=== PATIENT | female | born 1945 | race Caucasian/White ===

== ENCOUNTER 2016-09-06 22:51 | Emergency (ER) | payer OTHER ==
[~2016-09-06 22:51] MED LIST: ASPIRIN EC81 MG PO; AUGMENTIN875 MG PO; CIPRO500 MG PO; CLOPIDOGREL75 MG PO; HYDROCHLOROTHIA25 MG PO; MORPHINE SULFAT15 M1 PO; MULTIPLE VITAMIN PO; OXYCODONE HCL15 MG PO; OXYCONTIN CR15 MG PO; PROBIOTI1 PO
--- NOTE | 2016-09-06 23:30 | ED NURSING NOTES ---
Clinical Report - Nurses [facility] [address] [place] [address] 09/06/2016 22:52 Patient: MIKE BOONE TRIAGE Triage time 23:01 Sep 06 2016. Acuity: LEVEL 3. Chief Complaint: (Hemoptysis). SEPSIS SCREEN: Sepsis Screen. Negative (no infection suspected/documented). INDIGO COMA SCORE: Indigo Coma Scale: 15- eyes open spontaneously (4); best verbal response- oriented x 4 (5); best motor response- obeys commands (6). --23:12 Rachel Kaminski R.N. 23:01 09/06/16. BP: 140/63. HR: 90. RR: 16. O2 saturation: 100%. Temp: 98.2 F. Pain level now 0/10. --23:12 Rachel Kaminski R.N. Weight: 57.6 kg stated. Height/Length: 64 inches Per Patient. BMI: 21.8. --23:01 Rachel Kaminski R.N. Medications Aspirin Oral (Tablet 81 mg) 1 tablet, daily. Plavix Oral. --23:03 Rachel Kaminski R.N. Loratadine Oral. Plavix Oral (Tablet 75 mg) 1 tablet, daily. --23:03 Rachel Kaminski R.N. Loratadine Oral (Tablet 10 mg) 1 tablet, daily. Multivitamins Oral. --23:03 Rachel Kaminski R.N. OxyCODONE HCl Oral (Tablet 15 mg) 1 tablet, every 4 hours. --23:03 Rachel Kaminski R.N. Probiotic Oral, daily. --23:04 Rachel Kaminski R.N. Hydrochlorothiazide Oral (Tablet 25 mg) 1 tablet, daily. --23:04 Rachel Kaminski R.N. Medication/allergy information source: the patient. --23:12 Rachel Kaminski R.N. Allergies Cephalexin. Influenza Vaccines. Minocycline. Sulfamethoxazole/Trimethoprim. Tylenol. (intolerance) --23:38 Rachel Kaminski R.N. History Arrived by private vehicle. Historian: patient. Accompanied by friend. This started today. ( Denies cold symptoms, no bleeding from nose. No hx of TB or TB exposure recent or in the past. Observed small (< quarter size) blood clot that was expectorated during triage. Denies Shortness of breath or chest pain). She has had a cough. No fever, weakness, difficulty breathing or skin rash. Denies muscle aches. Treatment SNOW TECHNICIAN: None. PAST MEDICAL HX: Immunizations: up-to-date. SOCIAL HX: Former smoker. History of drug use: marijuana. (daily). No infectious disease exposure. ABUSE ASSESSMENT: No report of abuse. SELF HARM ASSESSMENT: A self harm assessment was performed. The patient answered "no" to the question "Have you recently felt down, depressed, or hopeless?", "Have you noticed less interest or pleasure in doing things?", "Do you have thoughts of harming or killing yourself?", "Are you here because you tried to hurt yourself?", "Have you ever tried to hurt yourself before today?", "Have you recently had thoughts about harming or killing others?" and "Do you have any dangerous items in your possession?". FALL RISK ASSESSMENT: Fall risk assessment completed. No fall risk identified. NUTRITIONAL RISK ASSESSMENT: The nutritional risk assessment revealed no deficiencies. FUNCTIONAL ASSESSMENT: Functional assessment: no impairments noted. LEARNING NEEDS ASSESSMENT: The learning needs assessment revealed no barriers. SKIN INTEGRITY ASSESSMENT: Skin integrity risk assessment completed. No skin integrity risk identified. --23:12 Rachel Kaminski R.N. PROBLEMS: Wound debridement. Guillain-[place]. Wound Infection. PVD. Hyperlipidemia. Bypass Graft Stenosis. Cellulitis. Angioedema. Hernia. LNMP - Last Normal Menstrual Period. Corneal Abrasion. Left leg swelling. Breast Cancer. Hypertension. --23:05 Rachel Kaminski R.N. ADDITIONAL SURGERIES: Appendectomy. Carpal Tunnel Surgery. Lymphectomy. Shoulder Surgery. Vascular surgery left leg . Vascular surgery on right leg recently. --23:05 Rachel Kaminski R.N. Interventions ID band on patient. --23:12 Rachel Kaminski R.N. PHYSICAL ASSESSMENT Ambulatory to room. GENERAL / NEURO / PSYCH: Alert. Oriented X 4. HEENT: Pupils equal, round and reactive to light. No facial asymmetry noted. RESPIRATORY: Respirations not labored. Chest nontender. Breath sounds within normal limits. CVS: Pulses within normal limits. GI / : Abdomen nontender. SKIN: Skin is dry. ( cool skin, dusky nail beds). --23:15 Rachel Kaminski R.N. NURSING PROGRESS NOTES 23:14 09/06/16. The initial plan of care for this patient has been created This plan of care was discussed with the patient. Patient gowned. Patient identifiers checked. Call light placed in reach. Side rails up x 1. Bed placed in lowest position. Brakes of bed on. Patient ready for evaluation. --23:14 Rachel Kaminski R.N. 23:30 09/06/2016 Afrin (Oxymetazoline HCl) Nasal [place] 2 spray given. Given in both nares. Allergies verified and confirmed 5 rights. --23:34 Rachel Kaminski R.N. DISPOSITION / DISCHARGE 23:37 09/06/16. Departure time: 23:37 Sep 06 2016. Condition at departure: improved and stable. The goals identified in the patient's plan of care were met. No learning barriers present. Discharge instructions provided and reviewed with the patient. Patient verbalized understanding. Written instructions provided in Romanian. The patient was discharged home and accompanied by chair car driver. She left the Emergency Department ambulatory and via private vehicle. Director Of Strategic Partnerships driving. --23:37 Rachel Kaminski R.N. 23:01 09/06/16. BP: 140/63. HR: 90. RR: 16. O2 saturation: 100%. Temp: 98.2 F. Pain level now 0/10. --23:37 Rachel Kaminski R.N. Locked/Released at 09/06/2016 23:38 by Rachel Kaminski R.N.
--- NOTE | 2016-09-06 23:30 | ED ORDER SUMMARY ---
..... Patient: MIKE BOONE OrderSheet [facility] VisitID: [id number] [address] [place] [address] 70y, F Registration Date/Time: 09/06/2016 ORDER SHEET Weight: 57.6 kg (stated) Allergies: Cephalexin, Influenza Vaccines, Minocycline, Sulfamethoxazole/Trimethoprim, Tylenol GENERAL ORDERS: MEDICATION ORDERS: Afrin Nasal [place] 2 sprays (NOW, both nares) (23:24 09/06/2016 Loni Chandler) (23:34 Marek Ray) IV FLUIDS: ORDER SHEET NOTES: [Electronically signed by Neal Castellano Dr. (23:33 09/06/2016)] [Electronically signed by Rachel Kaminski R.N. (23:38 09/06/2016)] [Electronically locked/signed by Rachel Kaminski R.N. (23:38 09/06/2016)]
--- NOTE | 2016-09-06 23:30 | ED CLINICAL REPORT ---
Clinical Report - Physicians/Mid Levels [facility] [address] [place] [address] 09/06/2016 22:52 Patient: MIKE BOONE Time Seen: 23:05; initial patient contact. Arrived- By private vehicle. Historian- patient. HISTORY OF PRESENT ILLNESS Chief Complaint: COUGH. This started today and is still present (persistent). It was gradual in onset and has been intermittent. The illness is described as mild. The patient has had a cough, nasal congestion, sinus pressure and sinus drainage. She has had scant amounts of blood tinged sputum. No difficulty breathing, chest discomfort or pain, fever or chills. No sore throat, nasal discharge or ear pain. Additional history - No known contact with a sick individual. No recent travel. Similar symptoms previously: None. Recent medical care: Not recently seen/assessed. REVIEW OF SYSTEMS The patient has had a headache. No nausea, vomiting or abnormal bleeding. All systems otherwise negative, except as recorded above. PAST HISTORY Wound debridement. Guillain-[place]. Wound Infection. PVD. Hyperlipidemia. Bypass Graft Stenosis. Cellulitis. Angioedema. Hernia. LNMP - Last Normal Menstrual Period. Corneal Abrasion. Left leg swelling. Breast Cancer. Hypertension SURGERIES: Appendectomy. Carpal Tunnel Surgery. Lymphectomy. Shoulder Surgery. Vascular surgery left leg . Vascular surgery on right leg recently. Medications: Hydrochlorothiazide Oral (Tablet 25 mg) 1 tablet, daily. Probiotic Oral, daily. OxyCODONE HCl Oral (Tablet 15 mg) 1 tablet, every 4 hours. Loratadine Oral (Tablet 10 mg) 1 tablet, daily. Multivitamins Oral. Loratadine Oral. Plavix Oral (Tablet 75 mg) 1 tablet, daily. Aspirin Oral (Tablet 81 mg) 1 tablet, daily. Plavix Oral. SOCIAL HISTORY Former smoker. History of drug use: marijuana. No alcohol use. ADDITIONAL NOTES The nursing notes have been reviewed with agreement regarding the chief complaint, PMH and patient medications and allergies. PHYSICAL EXAM Vital Signs: 09/06/2016 23:01 BP: 140/63. HR: 90. RR: 16. O2 saturation: 100%. Temp: 98.2 F. Have been reviewed. Hypertensive. Heart rate normal. Respiratory rate normal. Temperature normal. Oxygen saturation normal. Appearance: Alert. No acute distress. Head: Tenderness present to percussion/palpation of the sinuses. Eyes: Eyes normal inspection. ENT: Mild bleeding from nasopharynx. Mild generalized pharyngeal erythema. The mucous membranes are not dry. Neck: No lymphadenopathy. CVS: Normal heart rate and rhythm. Heart sounds normal. Respiratory: No respiratory distress. Breath sounds normal. Skin: Normal skin color. No rash. Extremities: No lower extremity edema. Neuro: Oriented X 3. PROGRESS AND PROCEDURES Disposition: Discharged home in good and improved condition. Condition: good. CLINICAL IMPRESSION Acute sphenoidal sinusitis INSTRUCTIONS (Use a cool mist humidifier at night. Use [place](nasal saline spray) to keep your mucous membranes from drying out). Your Current Medications: CONTINUE TAKING THE FOLLOWING MEDICATIONS: Aspirin Oral : Tablet 81 mg, 1 tablet daily. Hydrochlorothiazide Oral : Tablet 25 mg, 1 tablet daily. Loratadine Oral : Tablet 10 mg, 1 tablet daily. Loratadine Oral. Multivitamins Oral. OxyCODONE HCl Oral : Tablet 15 mg, 1 tablet every 4 hours. Plavix Oral : Tablet 75 mg, 1 tablet daily. Plavix Oral. Probiotic Oral : daily. Follow-up: Follow up with your doctor in about two days if not better. Call for an appointment. Blood pressure screening was not performed during this visit because the patient has an active diagnosis of hypertension. (Electronically signed by Neal Castellano Dr. 09/06/2016 23:33)
--- NOTE | 2016-09-06 23:30 | ED ORDER SUMMARY ---
..... Patient: MIKE BOONE OrderSheet [facility] VisitID: [id number] [address] [place] [address] 70y, F Registration Date/Time: 09/06/2016 ORDER SHEET Weight: 57.6 kg (stated) Allergies: Cephalexin, Influenza Vaccines, Minocycline, Sulfamethoxazole/Trimethoprim, Tylenol GENERAL ORDERS: MEDICATION ORDERS: Afrin Nasal [place] 2 sprays (NOW, both nares) (23:24 09/06/2016 Loni Chandler) (23:34 Marek Ray) IV FLUIDS: ORDER SHEET NOTES: [Electronically signed by Neal Castellano Dr. (23:33 09/06/2016)] [Electronically signed by Rachel Kaminski R.N. (23:38 09/06/2016)] [Electronically locked/signed by Rachel Kaminski R.N. (23:38 09/06/2016)]
--- NOTE | 2016-09-06 23:30 | ED CLINICAL REPORT ---
Clinical Report - Physicians/Mid Levels [facility] [address] [place] [address] 09/06/2016 22:52 Patient: MIKE BOONE Time Seen: 23:05; initial patient contact. Arrived- By private vehicle. Historian- patient. HISTORY OF PRESENT ILLNESS Chief Complaint: COUGH. This started today and is still present (persistent). It was gradual in onset and has been intermittent. The illness is described as mild. The patient has had a cough, nasal congestion, sinus pressure and sinus drainage. She has had scant amounts of blood tinged sputum. No difficulty breathing, chest discomfort or pain, fever or chills. No sore throat, nasal discharge or ear pain. Additional history - No known contact with a sick individual. No recent travel. Similar symptoms previously: None. Recent medical care: Not recently seen/assessed. REVIEW OF SYSTEMS The patient has had a headache. No nausea, vomiting or abnormal bleeding. All systems otherwise negative, except as recorded above. PAST HISTORY Wound debridement. Guillain-[place]. Wound Infection. PVD. Hyperlipidemia. Bypass Graft Stenosis. Cellulitis. Angioedema. Hernia. LNMP - Last Normal Menstrual Period. Corneal Abrasion. Left leg swelling. Breast Cancer. Hypertension SURGERIES: Appendectomy. Carpal Tunnel Surgery. Lymphectomy. Shoulder Surgery. Vascular surgery left leg . Vascular surgery on right leg recently. Medications: Hydrochlorothiazide Oral (Tablet 25 mg) 1 tablet, daily. Probiotic Oral, daily. OxyCODONE HCl Oral (Tablet 15 mg) 1 tablet, every 4 hours. Loratadine Oral (Tablet 10 mg) 1 tablet, daily. Multivitamins Oral. Loratadine Oral. Plavix Oral (Tablet 75 mg) 1 tablet, daily. Aspirin Oral (Tablet 81 mg) 1 tablet, daily. Plavix Oral. SOCIAL HISTORY Former smoker. History of drug use: marijuana. No alcohol use. ADDITIONAL NOTES The nursing notes have been reviewed with agreement regarding the chief complaint, PMH and patient medications and allergies. PHYSICAL EXAM Vital Signs: 09/06/2016 23:01 BP: 140/63. HR: 90. RR: 16. O2 saturation: 100%. Temp: 98.2 F. Have been reviewed. Hypertensive. Heart rate normal. Respiratory rate normal. Temperature normal. Oxygen saturation normal. Appearance: Alert. No acute distress. Head: Tenderness present to percussion/palpation of the sinuses. Eyes: Eyes normal inspection. ENT: Mild bleeding from nasopharynx. Mild generalized pharyngeal erythema. The mucous membranes are not dry. Neck: No lymphadenopathy. CVS: Normal heart rate and rhythm. Heart sounds normal. Respiratory: No respiratory distress. Breath sounds normal. Skin: Normal skin color. No rash. Extremities: No lower extremity edema. Neuro: Oriented X 3. PROGRESS AND PROCEDURES Disposition: Discharged home in good and improved condition. Condition: good. CLINICAL IMPRESSION Acute sphenoidal sinusitis INSTRUCTIONS (Use a cool mist humidifier at night. Use [place](nasal saline spray) to keep your mucous membranes from drying out). Your Current Medications: CONTINUE TAKING THE FOLLOWING MEDICATIONS: Aspirin Oral : Tablet 81 mg, 1 tablet daily. Hydrochlorothiazide Oral : Tablet 25 mg, 1 tablet daily. Loratadine Oral : Tablet 10 mg, 1 tablet daily. Loratadine Oral. Multivitamins Oral. OxyCODONE HCl Oral : Tablet 15 mg, 1 tablet every 4 hours. Plavix Oral : Tablet 75 mg, 1 tablet daily. Plavix Oral. Probiotic Oral : daily. Follow-up: Follow up with your doctor in about two days if not better. Call for an appointment. Blood pressure screening was not performed during this visit because the patient has an active diagnosis of hypertension. (Electronically signed by Neal Castellano Dr. 09/06/2016 23:33)
--- NOTE | 2016-09-06 23:30 | ED NURSING NOTES ---
Clinical Report - Nurses [place] [address] [place] [address] 09/06/2016 22:52 Patient: MIKE BOONE TRIAGE Triage time 23:01 Sep 06 2016. Acuity: LEVEL 3. Chief Complaint: (Hemoptysis). SEPSIS SCREEN: Sepsis Screen. Negative (no infection suspected/documented). INDIGO COMA SCORE: Indigo Coma Scale: 15- eyes open spontaneously (4); best verbal response- oriented x 4 (5); best motor response- obeys commands (6). --23:12 Rachel Kaminski R.N. 23:01 09/06/16. BP: 140/63. HR: 90. RR: 16. O2 saturation: 100%. Temp: 98.2 F. Pain level now 0/10. --23:12 Rachel Kaminski R.N. Weight: 57.6 kg stated. Height/Length: 64 inches Per Patient. BMI: 21.8. --23:01 Rachel Kaminski R.N. Medications Aspirin Oral (Tablet 81 mg) 1 tablet, daily. Plavix Oral. --23:03 Rachel Kaminski R.N. Loratadine Oral. Plavix Oral (Tablet 75 mg) 1 tablet, daily. --23:03 Rachel Kaminski R.N. Loratadine Oral (Tablet 10 mg) 1 tablet, daily. Multivitamins Oral. --23:03 Rachel Kaminski R.N. OxyCODONE HCl Oral (Tablet 15 mg) 1 tablet, every 4 hours. --23:03 Rachel Kaminski R.N. Probiotic Oral, daily. --23:04 Rachel Kaminski R.N. Hydrochlorothiazide Oral (Tablet 25 mg) 1 tablet, daily. --23:04 Rachel Kaminski R.N. Medication/allergy information source: the patient. --23:12 Rachel Kaminski R.N. Allergies Cephalexin. Influenza Vaccines. Minocycline. Sulfamethoxazole/Trimethoprim. Tylenol. (intolerance) --23:38 Rachel Kaminski R.N. History Arrived by private vehicle. Historian: patient. Accompanied by friend. This started today. ( Denies cold symptoms, no bleeding from nose. No hx of TB or TB exposure recent or in the past. Observed small (< quarter size) blood clot that was expectorated during triage. Denies Shortness of breath or chest pain). She has had a cough. No fever, weakness, difficulty breathing or skin rash. Denies muscle aches. Treatment REPULPING SUPERVISOR: None. PAST MEDICAL HX: Immunizations: up-to-date. SOCIAL HX: Former smoker. History of drug use: marijuana. (daily). No infectious disease exposure. ABUSE ASSESSMENT: No report of abuse. SELF HARM ASSESSMENT: A self harm assessment was performed. The patient answered "no" to the question "Have you recently felt down, depressed, or hopeless?", "Have you noticed less interest or pleasure in doing things?", "Do you have thoughts of harming or killing yourself?", "Are you here because you tried to hurt yourself?", "Have you ever tried to hurt yourself before today?", "Have you recently had thoughts about harming or killing others?" and "Do you have any dangerous items in your possession?". FALL RISK ASSESSMENT: Fall risk assessment completed. No fall risk identified. NUTRITIONAL RISK ASSESSMENT: The nutritional risk assessment revealed no deficiencies. FUNCTIONAL ASSESSMENT: Functional assessment: no impairments noted. LEARNING NEEDS ASSESSMENT: The learning needs assessment revealed no barriers. SKIN INTEGRITY ASSESSMENT: Skin integrity risk assessment completed. No skin integrity risk identified. --23:12 Rachel Kaminski R.N. PROBLEMS: Wound debridement. Guillain-[place]. Wound Infection. PVD. Hyperlipidemia. Bypass Graft Stenosis. Cellulitis. Angioedema. Hernia. LNMP - Last Normal Menstrual Period. Corneal Abrasion. Left leg swelling. Breast Cancer. Hypertension. --23:05 Rachel Kaminski R.N. ADDITIONAL SURGERIES: Appendectomy. Carpal Tunnel Surgery. Lymphectomy. Shoulder Surgery. Vascular surgery left leg . Vascular surgery on right leg recently. --23:05 Rachel Kaminski R.N. Interventions ID band on patient. --23:12 Rachel Kaminski R.N. PHYSICAL ASSESSMENT Ambulatory to room. GENERAL / NEURO / PSYCH: Alert. Oriented X 4. HEENT: Pupils equal, round and reactive to light. No facial asymmetry noted. RESPIRATORY: Respirations not labored. Chest nontender. Breath sounds within normal limits. CVS: Pulses within normal limits. GI / : Abdomen nontender. SKIN: Skin is dry. ( cool skin, dusky nail beds). --23:15 Rachel Kaminski R.N. NURSING PROGRESS NOTES 23:14 09/06/16. The initial plan of care for this patient has been created This plan of care was discussed with the patient. Patient gowned. Patient identifiers checked. Call light placed in reach. Side rails up x 1. Bed placed in lowest position. Brakes of bed on. Patient ready for evaluation. --23:14 Rachel Kaminski R.N. 23:30 09/06/2016 Afrin (Oxymetazoline HCl) Nasal [place] 2 spray given. Given in both nares. Allergies verified and confirmed 5 rights. --23:34 Rachel Kaminski R.N. DISPOSITION / DISCHARGE 23:37 09/06/16. Departure time: 23:37 Sep 06 2016. Condition at departure: improved and stable. The goals identified in the patient's plan of care were met. No learning barriers present. Discharge instructions provided and reviewed with the patient. Patient verbalized understanding. Written instructions provided in Faroese. The patient was discharged home and accompanied by registered nurse cardiovascular icu. She left the Emergency Department ambulatory and via private vehicle. Sh[employer] driving. --23:37 Rachel Kaminski R.N. 23:01 09/06/16. BP: 140/63. HR: 90. RR: 16. O2 saturation: 100%. Temp: 98.2 F. Pain level now 0/10. --23:37 Rachel Kaminski R.N. Locked/Released at 09/06/2016 23:38 by Rachel Kaminski R.N.
--- NOTE | 2016-09-06 23:39 | ED MAR SUMMARY ---
..... Medication Administration Record [facility] [address] [place] [address] Patient: MIKE BOONE Visit ID: [id number] 70y, F Weight: 57.6 kg Height/Length: 64 in BMI: 21.8 ALLERGIES: Cephalexin, Influenza Vaccines, Minocycline, Sulfamethoxazole/Trimethoprim, Tylenol Given 23:30 09/06/2016 Rachel Kaminski R.N. Medication Administered: AFRIN [NASAL SPRAY] (OXYMETAZOLINE HCL), Dose: 2 spray [place] Nasal [place]. Medication Ordered: Afrin Nasal [place] 2 sprays (NOW, both nares).
--- NOTE | 2016-09-06 23:39 | ED MAR SUMMARY ---
..... Medication Administration Record [facility] [address] [place] [address] Patient: MIKE BOONE Visit ID: [id number] 70y, F Weight: 57.6 kg Height/Length: 64 in BMI: 21.8 ALLERGIES: Cephalexin, Influenza Vaccines, Minocycline, Sulfamethoxazole/Trimethoprim, Tylenol Given 23:30 09/06/2016 Rachel Kaminski R.N. Medication Administered: AFRIN [NASAL SPRAY] (OXYMETAZOLINE HCL), Dose: 2 spray [place] Nasal [place]. Medication Ordered: Afrin Nasal [place] 2 sprays (NOW, both nares).
--- NOTE | 2016-09-06 23:39 | ED MED RECONCILIATION SUMMARY ---
Patient: MIKE BOONE Medication Reconciliation Report [facility] VisitID: [id number] [address] [place] [address] 70y, F Registration Date/Time: 09/06/2016 Weight: 57.6 kg Height/Length: 64 in. BMI: 21.8 ALLERGIES: Cephalexin, Influenza Vaccines, Minocycline, Sulfamethoxazole/Trimethoprim, Tylenol The patient's Home Medications are listed below: CONTINUE TAKING THE FOLLOWING MEDICATIONS: Aspirin Oral (81 mg) 1 tablet, daily Hydrochlorothiazide Oral (25 mg) 1 tablet, daily Loratadine Oral (10 mg) 1 tablet, daily Loratadine Oral Multivitamins Oral OxyCODONE HCl Oral (15 mg) 1 tablet, every 4 hours Plavix Oral (75 mg) 1 tablet, daily Plavix Oral Probiotic Oral, daily The source(s) of the original Home Medication information: patient The following Medications were given to the patient in the Emergency Department: Afrin [Nasal [place]] Nasal [place] 2 spray, administered: 09/06/2016 11:30:00 PM The following Medications were prescribed to the patient: None.
--- NOTE | 2016-09-06 23:39 | ED MED RECONCILIATION SUMMARY ---
Patient: MIKE BOONE Medication Reconciliation Report [facility] VisitID: [id number] [address] [place] [address] 70y, F Registration Date/Time: 09/06/2016 Weight: 57.6 kg Height/Length: 64 in. BMI: 21.8 ALLERGIES: Cephalexin, Influenza Vaccines, Minocycline, Sulfamethoxazole/Trimethoprim, Tylenol The patient's Home Medications are listed below: CONTINUE TAKING THE FOLLOWING MEDICATIONS: Aspirin Oral (81 mg) 1 tablet, daily Hydrochlorothiazide Oral (25 mg) 1 tablet, daily Loratadine Oral (10 mg) 1 tablet, daily Loratadine Oral Multivitamins Oral OxyCODONE HCl Oral (15 mg) 1 tablet, every 4 hours Plavix Oral (75 mg) 1 tablet, daily Plavix Oral Probiotic Oral, daily The source(s) of the original Home Medication information: patient The following Medications were given to the patient in the Emergency Department: Afrin [Nasal [place]] Nasal [place] 2 spray, administered: 09/06/2016 11:30:00 PM The following Medications were prescribed to the patient: None.
--- NOTE | 2016-09-06 23:39 | ED DISCHARGE INSTRUCTIONS ---
Patient: MIKE BOONE General Instructions [facility] VisitID: [id number] [place] [address] 70y, F Registration Date/Time: 09/06/2016 Acute sphenoidal sinusitis INSTRUCTIONS (Use a cool mist humidifier at night. Use [place](nasal saline spray) to keep your mucous membranes from drying out). Your Current Medications: CONTINUE TAKING THE FOLLOWING MEDICATIONS: Aspirin Oral : Tablet 81 mg, 1 tablet daily. Hydrochlorothiazide Oral : Tablet 25 mg, 1 tablet daily. Loratadine Oral : Tablet 10 mg, 1 tablet daily. Loratadine Oral. Multivitamins Oral. OxyCODONE HCl Oral : Tablet 15 mg, 1 tablet every 4 hours. Plavix Oral : Tablet 75 mg, 1 tablet daily. Plavix Oral. Probiotic Oral : daily. Follow-up: Follow up with your doctor in about two days if not better. Call for an appointment. Blood pressure screening was not performed during this visit because the patient has an active diagnosis of hypertension. ADDITIONAL INFORMATION Sinusitis [No Abx Tx] The sinuses are air-filled spaces within the bones of the face. They connect to the inside of the nose. Sinusitis is an inflammation of the tissue lining the sinus cavity. Sinus inflammation can occur during a cold or hay-fever (allergies to pollens and other particles in the air) and cause symptoms of sinus congestion and fullness and perhaps a low-grade fever. This does not require antibiotic treatment. Home Care: Drink plenty of water, hot tea, and other liquids to stay well hydrated. This thins the mucus and promotes sinus drainage. Apply heat to the painful areas of the face. Use a towel soaked in hot water. Or, information systems audit manager the shower and direct the hot spray onto your face. This is a good way to inhale warm water vapor and get heat on your face at the same time. (Cover your mouth and nose with your hands so you can still breathe as you do this.) Use a vaporizer with products such as Vicks VapoRub (contains menthol) at night. Suck on peppermint, menthol or eucalyptus hard candies during the day. An expectorant containing guaifenesin (such as Robitussin), helps to thin the mucus and promote drainage from the sinuses. [id number] decongestants may be used unless a similar medicine was prescribed. Nasal sprays work the fastest. Use one that contains phenylephrine (Bryan-synephrine, Sinex and others) or oxymetazoline (Afrin). First blow the nose gently to remove mucus, then apply the drops. Do not use these medicines more often than directed on the label or for more than three days or symptoms may worsen. You may also use tablets containing pseudoephedrine (Sudafed). Many sinus remedies combine ingredients, which may increase side effects. Read the labels or ask the pharmacist for help. NOTE: Persons with high blood pressure should not use decongestants. They can raise blood pressure. Antihistamines are useful if allergies are a cause of your sinusitis. The mildest one is chlorpheniramine (available without a prescription). The dose for adults is 8-12mg three times a day. [NOTE: Do not use chlorpheniramine if you have glaucoma or if you are a man with trouble urinating due to an enlarged prostate.] Claritin (loratidine) is an antihistamine that causes less drowsiness and is a good alternative for daytime use. When allergies are the cause for sinusitis, a saline nasal rinse may give relief. Saline nasal rinse reduces swelling and clears excess mucus. This allows sinuses to drain. Pre-packaged kits are available at most drug stores. These contain pre-mixed salt packets and an irrigation device. You may use acetaminophen (Tylenol) or ibuprofen (Motrin, Advil) to control pain, unless another pain medicine was prescribed. [ NOTE: If you have chronic liver or kidney disease or ever had a stomach ulcer, talk with your doctor before using these medicines.] (Aspirin should never be used in anyone under 18 years of age who is ill with a fever. It may cause severe liver damage.) Follow Up with your doctor or this facility in one week or as instructed by our staff if not improving. Get Prompt Medical Attention if any of the following occur: Green or yellow drainage from the nose or into the back of the throat (post-nasal drip) Worsening sinus pain or headache Stiff neck Unusual drowsiness, confusion or not acting like your normal self Swelling of the forehead or eyelids Vision problems including blurred or double vision Fever of 100.4F (38C) or higher, or as directed by your healthcare provider Seizure You have been given the following additional information: Sinusitis, No Abx (Electronically signed by Neal Castellano Dr. 09/06/2016 23:33)
== END 2016-09-06 23:39 | disposition home or self-care (01) ==
LOC: ED SRH 22:51
DX: J01.30 Acute sphenoidal sinusitis, unspecified (principal); I10 Essential (primary) hypertension; Z79.891 Long term (current) use of opiate analgesic; Z79.899 Other long term (current) drug therapy; Z79.82 Long term (current) use of aspirin

== ENCOUNTER 2016-09-08 12:45 | Outpatient (CLI) | payer OTHER ==
--- NOTE | 2016-09-08 13:10 | DIAGNOSTIC IMAGING REPORT ---
PROCEDURE: DEXA BONE DENSITY STUDY CLINICAL INDICATION: POSTMENAPAUSAL COMPARISON: None. FINDINGS: LUMBAR SPINE: Bone mineral density 0.908 g/cm2, T score -1.3 osteopenia LEFT HIP: Bone mineral density 0.811 g/cm2, T score -1.1 osteopenia LEFT FEMORAL NECK: Bone mineral density 0.755 g/cm2, T score -0.8 normal FRACTURE RISK CALCULATION ( when applicable): 10-year fracture risk of a major osteoporotic fracture 13 % and of a hip fracture 1.2% (T score greater or equal to -1.0 to: NORMAL) (T score from -1.1 to -2.4: OSTEOPENIA) (T score ess than or equal to -2.5: OSTEOPOROSIS) IMPRESSION: 1. Lumbar spine and hip osteopenia with a 10-year major fracture risk of 13% and a hip fracture risk of 1.2%
== END 2016-09-08 23:00 ==
LOC: XR SRH 12:45
DX: M85.89 Other specified disorders of bone density and structure, multiple sites (principal); N95.9 Unspecified menopausal and perimenopausal disorder